=== PATIENT | female | born 1995 | race Caucasian/White ===

== ENCOUNTER 2019-03-30 10:18 | Emergency (ER) | payer MEDICAID, OTHER ==
[~2019-03-30] VITALS: Ht 157.5 cm; Wt 63.5 kg
[2019-03-30 10:18] VITALS: BP 124/90
== END 2019-03-30 11:20 | disposition home or self-care (01) ==
LOC: ER 10:26
DX: J03.90 Acute tonsillitis, unspecified (principal); Z71.6 Tobacco abuse counseling

== ENCOUNTER 2022-08-25 17:07 | Emergency (ER) | payer MEDICAID ==
[~2022-08-25] VITALS: Ht 157.5 cm; Wt 92.5 kg
[2022-08-25 19:11] VITALS: BP 132/89
[2022-08-25] MEDS ORDERED: BENZOCAINE (DENTAL) 20 % SPRAY 60ML MT ONE (19:30)
[2022-08-25] MEDS ORDERED: AMOX500T3 PO (19:30)
[2022-08-25] MEDS ORDERED: HYDROcodone-ACET 5/325MG TAB PO ONE (19:30)
[2022-08-25] MEDS ORDERED: HYDR-4902 PO ×3 (19:30→20:35)
[2022-08-25] MEDS ORDERED: AMOX500C2 PO (20:35)
== END 2022-08-25 20:40 | disposition home or self-care (01) ==
LOC: ER 17:07
DX: K04.7 Periapical abscess without sinus (principal); F17.210 Nicotine dependence, cigarettes, uncomplicated; F12.90 Cannabis use, unspecified, uncomplicated; Z88.1 Allergy status to other antibiotic agents; Z91.018 Allergy to other foods